=== PATIENT | female | born 2000 | race Two or more races ===

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

== ENCOUNTER 2022-07-06 23:28 | Observation (INO) | payer MEDICAID | END 2022-07-07 02:15 | disposition home or self-care (01) | LOC: LDRP 23:28 | PROVIDERS: ADMIT Obstetrics & Gynecology; ATTEND Obstetrics & Gynecology | DX: O26.892 Other specified pregnancy related conditions, second trimester (principal); R10.9 Unspecified abdominal pain; Z3A.26 26 weeks gestation of pregnancy | CPT/HCPCS: 59025; 81002; G0378 ==